=== PATIENT | male | born 1985 | race Two or more races ===

== ENCOUNTER 2016-08-14 16:20 | Emergency (ER) | payer MEDICAID ==
[~2016-08-14] VITALS: Ht 185.4 cm; Wt 140.6 kg
--- NOTE | 2016-08-14 16:43 | NUR ---
Patient was able to swallow pills and drink water without difficulty.
[2016-08-14] MEDS ORDERED: ACETAMINOPHEN 650 MG/20.3 ML LIQUID UDC PO ONE (16:45)
[2016-08-14] MEDS ORDERED: ACETAMINOPHEN ES 500 MG TABLET ONE (16:45)
--- NOTE | 2016-08-14 16:45 | NUR ---
Patient discharged to home in stable conditon. Written and verbal after care instructions given to patient and family. Patient and family verbalized understanding of instructions. Patient left ER with brisk steady gait.
[2016-08-15] MEDS ORDERED: AMOX-430 PO (00:32)
== END 2016-08-14 16:46 | disposition home or self-care (01) ==
LOC: ER 16:31
DX: J02.0 Streptococcal pharyngitis (principal)
CPT/HCPCS: A4663